=== PATIENT | male | born 1960 | race African-American/Black ===

== ENCOUNTER 2017-10-09 15:19 | Emergency (ER) | payer SELFPAY ==
[2017-10-09] MEDS: IBUPROFEN 800 MG TABLET. PO (16:23)
[2017-10-09] MEDS: HYDROcodone/APAP 5/325MG 1 TAB TABLET PO (16:23)
== END 2017-10-09 17:50 | disposition home or self-care (01) ==
LOC: ER 15:19
DX: S32.028A Other fracture of second lumbar vertebra, initial encounter for closed fracture (principal); S32.038A Other fracture of third lumbar vertebra, initial encounter for closed fracture; W10.9XXA Fall (on) (from) unspecified stairs and steps, initial encounter; Y93.01 Activity, walking, marching and hiking; Y92.89 Other specified places as the place of occurrence of the external cause; Y99.8 Other external cause status
CPT/HCPCS: 72131; 99284-25